=== PATIENT | male | born 1950 | race Caucasian/White ===

== ENCOUNTER 2019-09-26 00:17 | Inpatient (IN) ==
--- NOTE | 2019-09-19 08:32 | EKG Report ---
Test Performed on : 09/19/2019 08:05:40 AM Test Reason : pat Blood Pressure : / mmHG Vent. Rate : 077 BPM Atrial Rate : 077 BPM P-R Int : 196 ms QRS Dur : 126 ms QT Int : 420 ms P-R-T Axes : 039 064 071 degrees QTc Int : 475 ms Normal sinus rhythm. Right bundle branch block Abnormal ECG When compared with ECG of 03-JAN-2012 15:28, Right bundle branch block is now present Confirmed by Ashutosh SULLIVAN, P.J.M ([id number]) on 09/19/2019 7:58:52 PM
[2019-09-19 08:50] LABS: URINE SOURCE CLEAN CATCH
[2019-09-19 09:10] LABS: BASO# 0.03 X1000 (0.0-0.2); BASO% 0.4 % (0.0-0.8); EOS# 0.21 X1000 (0.0-0.7); HEMATOCRIT 44.6 % (42.0-52.0); HEMOGLOBIN 14.1 g/dL (14.0-18.0); IMM GRAN# 0.02 X1000 (0.0-0.04); IMM GRAN% 0.3 % (0.0-0.5); LYMPH# 2.68 X1000 (1.2-3.4); LYMPH% 38.5 % (20.5-51.1); MCH 30.1 PG (27-31); MCHC 31.6 g/dL (33-37); MCV 95.3 FL (81-99); MONO# 0.67 X1000 (0.11-0.59); MONO% 9.6 % (1.7-9.3); MPV 9.6 FL (7.4-10.4); NEUT# 3.35 X1000 (1.4-6.5); NEUT% 48.2 % (42.2-75.2); PLT 301 X1000 (130-400); RBC 4.68 XMIL (4.7-6.1); WBC 6.96 X1000 (4.8-10.8)
[2019-09-19 09:11] LABS: BILIRUBIN URINE NEGATIVE (NEGATIVE); BLOOD URINE NEGATIVE (NEGATIVE); COLOR YELLOW; GLUCOSE URINE NEGATIVE (NEGATIVE); KETONE URINE NEGATIVE (NEGATIVE); LEUKOCYTES URINE NEGATIVE (NEGATIVE); NITRITE URINE NEGATIVE (NEGATIVE); PH URINE 5.5; PROTEIN URINE NEGATIVE (NEGATIVE); SP GRAVITY URINE 1.021; TURBIDITY URINE CLEAR (CLEAR); UROBILINOGEN URINE NORMAL (NORMAL)
[2019-09-19 09:14] LABS: UR EPITHELIAL CELLS <10 /HPF (<10); URINE BACTERIA NEGATIVE /HPF; URINE RBC <10 /HPF (<10); URINE WBC <10 /HPF (<10)
[2019-09-19 09:16] LABS: INR 1.01; PROTIME 13.4 Seconds (11.0-16.0)
[2019-09-19 09:17] LABS: PTT 26.6 Seconds (22.3-41.8)
[2019-09-19 09:38] LABS: HEMOGLOBIN A1C 6.4 % (4.8-6.0)
[2019-09-19 09:41] LABS: CALCIUM 9.1 mg/dL (8.8-10.2); CREATININE 1.2 mg/dL (0.7-1.2); POTASSIUM 3.8 mmol/L (3.5-5.1)
[2019-09-26] MEDS ORDERED: PEPCID ONE (07:51)
[2019-09-26] MEDS ORDERED: KEFZOL 1 GM/D5W 1 GM/50 ML IVPB ONE ×2 (07:51→10:30)
[2019-09-26] MEDS ORDERED: CELEBREX ONE (07:51)
[2019-09-26] MEDS ORDERED: LR 1,000 ML ONE (07:51)
[2019-09-26] MEDS ORDERED: LYRICA ONE (07:51)
[2019-09-26] MEDS ORDERED: REGLAN ONE (07:51)
[2019-09-26] MEDS ORDERED: COLACE ONE (07:51)
[2019-09-26] MEDS ORDERED: ZEMURON ONE ×2 (08:28→09:48)
[2019-09-26] MEDS ORDERED: XYLOCAINE-MPF 2% ONE (08:28)
[2019-09-26] MEDS ORDERED: QUELICIN (DOSE) ONE ×2 (08:28→09:50)
[2019-09-26] MEDS ORDERED: DIPRIVAN 1% ONE (08:29)
[2019-09-26] MEDS ORDERED: MAXZIDE-25 PO SCH (09:00)
[2019-09-26] MEDS ORDERED: MONOPRIL PO SCH (09:00)
[2019-09-26] MEDS ORDERED: TENORMIN PO SCH (09:00)
[2019-09-26] MEDS ORDERED: DURAMORPH ONE (09:09)
[2019-09-26] MEDS ORDERED: MARCAINE 0.25% PF ONE (09:10)
[2019-09-26] MEDS ORDERED: SODIUM CHLORIDE 0.9% ONE (09:10)
[2019-09-26] MEDS ORDERED: CYKLOKAPRON 1,000 MG/NS 1,000 MG/100 ML IVPB ONE (09:10)
[2019-09-26] MEDS ORDERED: EXPAREL 1.3% ONE (09:10)
[2019-09-26] MEDS ORDERED: TORADOL ONE (09:10)
[2019-09-26] MEDS ORDERED: FENTANYL ONE (09:53)
[2019-09-26] MEDS ORDERED: EPHEDRINE ONE (10:01)
[2019-09-26] MEDS ORDERED: ROBINUL ONE ×2 (10:10→10:59)
[2019-09-26] MEDS ORDERED: NEO-SYNEPHRINE ONE (10:12)
[2019-09-26] MEDS ORDERED: ZOFRAN ONE (10:25)
[2019-09-26] MEDS ORDERED: OFIRMEV 1000 MG/ISOTONIC SOLN 1,000 MG/100 ML BOTTLE ONE (10:25)
[2019-09-26] MEDS ORDERED: DECADRON ONE (10:25)
[2019-09-26 10:26] LABS: URINE SOURCE CATH
[2019-09-26 10:29] LABS: BILIRUBIN URINE NEGATIVE (NEGATIVE); BLOOD URINE NEGATIVE (NEGATIVE); COLOR YELLOW; GLUCOSE URINE NEGATIVE (NEGATIVE); KETONE URINE NEGATIVE (NEGATIVE); LEUKOCYTES URINE NEGATIVE (NEGATIVE); NITRITE URINE NEGATIVE (NEGATIVE); PROTEIN URINE NEGATIVE (NEGATIVE); SP GRAVITY URINE 1.015; TURBIDITY URINE CLEAR (CLEAR); UROBILINOGEN URINE NORMAL (NORMAL)
[2019-09-26 10:31] LABS: UR EPITHELIAL CELLS <10 /HPF (<10); URINE BACTERIA NEGATIVE /HPF; URINE RBC <10 /HPF (<10); URINE WBC <10 /HPF (<10)
[2019-09-26] MEDS ORDERED: PITRESSIN ONE (10:36)
[2019-09-26] MEDS ORDERED: NEOSTIGMINE ONE (11:00)
[2019-09-26] MEDS ORDERED: NS 1,000 ML ONE (11:32)
[2019-09-26] MEDS ORDERED: OXY IR ONE (11:41)
[2019-09-26] MEDS: DILAUDID ONE ×3 (11:41→11:56)
--- NOTE | 2019-09-26 11:50 | Diag Imaging Result Doc PS360 ---
SHOULDER 1 VIEW LEFT - 09/26/2019 INDICATION: Left TSA TECHNIQUE: COMPARISON: 08/22/2019 FINDINGS: There has been left total shoulder arthroplasty. Alignment is anatomic. No hardware fracture or loosening. IMPRESSION: No complication. Electronically signed by Aly Powers 09/26/2019 11:47 AM
[2019-09-26] MEDS ORDERED: MORPHINE IV PRN ×3 (13:15)
[2019-09-26] MEDS ORDERED: OXY IR PO PRN ×2 (13:15)
[2019-09-26] MEDS ORDERED: ZOFRAN PO PRN (13:15)
[2019-09-26] MEDS: NS 1,000 ML IV SCH (14:06)
[2019-09-26] MEDS: FLEXERIL PO SCH ×2 (14:54→14:55)
[2019-09-26] MEDS ORDERED: CYKLOKAPRON 1,000 MG in NS 100 ML IV ONE (15:45)
[2019-09-26] MEDS: KEFZOL 2 GM/D5W 2 GM/50 ML IVPB IV SCH (16:50)
[2019-09-26] MEDS ORDERED: GLUCOPHAGE PO SCH (17:00)
--- NOTE | 2019-09-26 18:21 | OPERATIVE NOTE ---
PROCEDURE DATE: 09/26/2019 PREOPERATIVE DIAGNOSIS: Left glenohumeral arthritis with chronic rotator cuff tear. POSTOPERATIVE DIAGNOSIS: Left glenohumeral arthritis with chronic rotator cuff tear. PROCEDURE: Left reverse total shoulder arthroplasty with DePuy Delta Xtend size 14 press-fit stem with a 42 +3 humeral cup, a 42 +6 mm lateralized eccentric glenosphere and a standard metaglene. SURGEON: Darell Perera MD CREDIT CORRESPONDENCE CLERK: YURI Talavera, who was necessary for proper retraction and manipulation of the extremity during the case. SECOND GRADES 1 THRU 6 VISITING TEACHER: Jason Flores RN. ANESTHESIA: General. INTRAVENOUS FLUIDS: Lactated Ringer 1800 mL ESTIMATED BLOOD LOSS: 100 mL COMPLICATIONS: None. INDICATION: The patient is a pleasant 69-year-old male who is status post fall a few months ago. He has had increased pain and discomfort in the left shoulder. MRI was obtained and revealed findings consistent with glenohumeral arthritis and a chronic massive retracted rotator cuff tear. Given the patient's findings, recommendation to proceed with left reverse total shoulder arthroplasty was offered. Risks and benefits of surgery were explained, including the risks of anesthesia, , bleeding, infection, failure to relieve pain, postoperative stiffness, nerve injury, blood clots and other imponderables. All questions were answered. The patient and family wished to proceed with surgery. DETAILS OF OPERATION: The patient was taken to the operating room and placed supine on the operating table. Once adequate anesthesia was obtained, the patient was placed in semi-Early beach chair position. The left shoulder was subsequently prepped and draped in the usual sterile fashion. A standard deltopectoral incision was made with a skin knife. Hemostasis was obtained using electrocautery. The deltopectoral interval was then developed. A Turner retractor was then placed. The clavipectoral fascia was elevated as well. The patient had very poor quality subscapularis tendon, and a small portion of it was inferior and had evidence of tear of this as well. The inferior portion of it had some remnant. This was released and the humeral head was then dislocated anteriorly, and the patient did have evidence of chronic massive retracted rotator cuff tear. After this had been performed, attention was then turned to the proximal humerus. Sequential reaming was conducted up to size 14. The intramedullary guide was placed in position. The humeral head was resected. After this had been performed, protective disk was then placed. Attention was then turned to the glenoid. Circumferential dissection was performed with a deep knife. A guide was then placed in position. The guide pin was then placed. Reaming was then conducted. The central hole was then dilated. The wound was copiously irrigated with antibiotic pulsatile lavage. A standard metaglene was then impacted in position. Two locking screws were placed and 2 nonlocking screws were placed. I had good fixation. The wound was copiously irrigated once again. The 42 +6 mm lateralized glenosphere was then placed, with eccentricity placed inferiorly. After this had been performed, attention then turned to the proximal humerus. The intramedullary guide was placed in position. The proximal humerus was reamed. A size 14 press-fit stem was then placed. The trial cup size 42 +3 humeral cup had excellent stability and range of motion. The trial cup was removed. The wound was copiously irrigated once again. A 42 +3 humeral cup was then placed. The shoulder was reduced, carried through range of motion. It had excellent range of motion and stability. Exparel was placed in deep soft tissue. The most inferior portion of the subscapularis tendon was repaired to the remnant laterally. Again, we had very poor quality tissue at this site. Remaining Exparel was placed in deep soft tissue as well as subcutaneous tissue. The wound was copiously irrigated once again. A 2-0 Vicryl was then used to repair the subcutaneous tissue, followed by running 2-0 Prolene. Benzoin and Steri-Strips were applied. Adaptic, sterile 4 x 4s, ABD pad and tape were applied to the left shoulder, followed by shoulder immobilizer. All counts were correct. The patient tolerated the procedure well and was transferred to the recovery room in stable condition. cc: Darell Perera MD MTDAydee
[2019-09-26] MEDS ORDERED: PERIDEX MT SCH (21:00)
[2019-09-26] MEDS ORDERED: LIPITOR PO SCH (21:00)
[2019-09-26] MEDS ORDERED: COLACE PO SCH (21:00)
[2019-09-27] MEDS: KEFZOL 2 GM/D5W 2 GM/50 ML IVPB IV SCH (00:55)
[2019-09-27] MEDS: NS 1,000 ML IV SCH ×2 (00:56→03:18)
[2019-09-27] MEDS: FLEXERIL PO SCH (03:17)
[2019-09-27] MEDS ORDERED: PROTONIX PO SCH (07:00)
[2019-09-27 07:02] LABS: HEMATOCRIT 35.9 % (42.0-52.0); HEMOGLOBIN 11.6 g/dL (14.0-18.0)
[2019-09-27 07:22] LABS: CALCIUM 8.4 mg/dL (8.8-10.2); CREATININE 1.3 mg/dL (0.7-1.2); POTASSIUM 4.4 mmol/L (3.5-5.1)
[2019-09-27 08:35] VITALS: BP 159/78
--- NOTE | 2019-09-27 10:55 | ORTHOPAEDICS PROGRESS NOTE ---
DATE: 09/27/2019 SUBJECTIVE: The patient is a pleasant, 69-year-old male, who is 1 day status post left reverse total arthroplasty. He is currently resting comfortably. OBJECTIVE: On physical exam, patient's left upper extremity wound looks good. There are no signs or symptoms of infection. He is grossly neurovascularly intact distally. Able to flex all his fingers. LABS: His hemoglobin is 11.6 and hematocrit is 35.9. IMPRESSION: Postoperative day #1 status post left reverse total shoulder arthroplasty. PLAN: At this point, will discharge patient home. We will arrange for outpatient physical therapy. He will follow up in the office on 10/08/2019. cc: Darell Perera MD
== END 2019-09-27 08:44 | disposition home or self-care (01) ==
LOC: SURHOLD 00:17 → 4N 13:07
PROVIDERS: ADMIT Orthopaedic Surgery Adult Reconstructive Orthopaedic Surgery; ATTEND Orthopaedic Surgery Adult Reconstructive Orthopaedic Surgery